=== PATIENT | female | born 1940 | race Caucasian/White ===

== ENCOUNTER 2022-09-16 08:28 | Day surgery (SDC) | payer OTHER, SELFPAY ==
[2022-09-11 11:38] VITALS: BMI 26.6
--- NOTE | 2022-09-12 13:23 | MHC.SHP ---
Pre-Procedural Eval Section A Date of Service: 09/12/22 The patient is an INPATIENT: No Changes since office visit: No Cold of Flu in the past 2 weeks, No New Medical Problems, No Changes in Medication and No Patient answered all questions The History & Physical has been completed within 30 days and I have reviewed it.: Yes Section B Chief Complaint: Age-related nuclear cataract, right eye Allergies: Allergies Allergy/AdvReac Type Severity Reaction Status Date / Time Sulfa (Sulfonamide Allergy Hives Verified 09/11/22 11:28 Antibiotics) sulfamethoxazole Allergy Hives Verified 09/11/22 11:29 [From Bactrim] trimethoprim [From Bactrim] Allergy Hives Verified 09/11/22 11:29 Plan Diagnosis/Plan: Unchanged I have reviewed the history and physical and performed a pertinent physical examination on my patient. No changes have occurred unless specified. Time Spent With Patient Time: Total time managing care of this patient today ____ minutes.
--- NOTE | 2022-09-13 10:06 | P.CONAN_ITS ---
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 If so, by whom?: No Advance Directives: No Advance Directives Information Provided: Yes Advance Directives on File: No Recently lost weight without trying: No Eating poorly because of decreased appetite: No Nutrition Risks: No Nutritional Risk Patient : No : No Poor oral hygiene: Yes (partial bottom) Meds Allergies Allergy/AdvReac Type Severity Reaction Status Date / Time Sulfa (Sulfonamide Allergy Hives Verified 09/16/22 08:34 Antibiotics) sulfamethoxazole Allergy Hives Verified 09/16/22 08:34 [From Bactrim] trimethoprim [From Bactrim] Allergy Hives Verified 09/16/22 08:34 Home Medications Medication Instructions Recorded Confirmed Last Taken Type aspirin 81 mg tablet,delayed 81 mg PO DAILY 09/11/22 09/11/22 Unknown History release atorvastatin 20 mg tablet 20 mg PO DAILY 09/11/22 09/11/22 Unknown History diltiazem HCl 180 mg capsule,24 180 mg PO DAILY 09/11/22 09/11/22 Unknown History hr,extended release levothyroxine 75 mcg tablet 75 mcg PO DAILY 09/11/22 09/11/22 Unknown History multivitamin 1 tab PO DAILY 09/11/22 09/11/22 Unknown History pantoprazole 20 mg tablet,delayed 20 mg PO DAILY 09/11/22 09/11/22 Unknown History release sulindac 150 mg tablet 150 mg PO BID 09/11/22 09/11/22 Unknown History Exam Exam Date and Time: September 13, 2022 1006 Height,Weight and Vital Signs: Height 5 ft 7 in Weight 77.111 kg Assessment and Plan Assessment Anesthesia Assessment: Chart Reviewed Documented by User: Alcides Soliz MD 09/16/22 18:09 [facility] Past Medical History Medical History Asthma Bronchitis GERD (gastroesophageal reflux disease) Hepatitis A Hiatal hernia Thyroid disease Ventricular arrhythmia Functional capacity: independent ambulation Family History Family history of problems with anesthesia: No Surgical History Surgical History History of prolapse of bladder Hx of appendectomy Hx of tubal ligation History of Problems with Anesthesia: No Social History Social History 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 If so, by whom?: No Advance Directives: No Advance Directives Information Provided: Yes Advance Directives on File: No Recently lost weight without trying: No Eating poorly because of decreased appetite: No Nutrition Risks: No Nutritional Risk Patient : No : No Poor oral hygiene: Yes (partial bottom) Meds Allergies Allergy/AdvReac Type Severity Reaction Status Date / Time Sulfa (Sulfonamide Allergy Hives Verified 09/16/22 08:34 Antibiotics) sulfamethoxazole Allergy Hives Verified 09/16/22 08:34 [From Bactrim] trimethoprim [From Bactrim] Allergy Hives Verified 09/16/22 08:34 Home Medications Medication Instructions Recorded Confirmed Last Taken Type aspirin 81 mg tablet,delayed 81 mg PO DAILY 09/11/22 09/11/22 Unknown History release atorvastatin 20 mg tablet 20 mg PO DAILY 09/11/22 09/11/22 Unknown History diltiazem HCl 180 mg capsule,24 180 mg PO DAILY 09/11/22 09/11/22 Unknown History hr,extended release levothyroxine 75 mcg tablet 75 mcg PO DAILY 09/11/22 09/11/22 Unknown History multivitamin 1 tab PO DAILY 09/11/22 09/11/22 Unknown History pantoprazole 20 mg tablet,delayed 20 mg PO DAILY 09/11/22 09/11/22 Unknown History release sulindac 150 mg tablet 150 mg PO BID 09/11/22 09/11/22 Unknown History Exam Airway Mallampati Class: III Neck ROM: Full Loose/Missing/Broken Teeth: Yes Assessment and Plan Assessment Anesthesia Assessment: Anesthesia Plan Discussed Final Anesthetic Review Family History of Problems with Anesthesia: No History of Problems with Anesthesia: No NPO: Yes ASA Class: II Final Preanesthetic Review: Meds/Allgs Chart Reviewed, Consent Obtained/Reviewed and Anes Risks/Benef Reviewed Patient Risk: Intermediate Procedure Risk: Intermediate Anesthetic Plan Anesthetic Plan: MAC: and Agree w/ Assess. and Plan Disposition: Standard PACU
[2022-09-16 08:49] VITALS: BP 148/72; PULSE 73; RESP 16; TEMP 36.7; O2SAT 97
[2022-09-16] MEDS: Tetracaine HCl/PF 0.5% Oph Sol 4 ML DROPS 1 DROP EYE-RIGHT (08:58)
[2022-09-16] MEDS: Cyclopentolate 1 % Ophth Sol 2 ML DRPBTL 1 DROP EYE-RIGHT ×3 (09:01→09:17)
[2022-09-16] MEDS: Ketorolac Tromethamine 0.5% Op 5 ML DROPS 1 DROP EYE-RIGHT ×3 (09:07→09:19)
[2022-09-16] MEDS: Phenylephrine HCL 2.5% Oph SoL 2 ML BOTTLE 1 DROP EYE-RIGHT ×3 (09:10→09:20)
[2022-09-16] MEDS: Lactated Ringers 500 ML 50 ML IV (09:12)
--- NOTE | 2022-09-16 10:13 | HO.PNOPHT ---
Ophthalmology Procedure Procedure Date of Service: 09/16/22 Ophthalmology Viscoelastic: Healon Duet Dual Pack Pro Ophthalmology Lenses: TECNIS [id number] (18.5) Procedure Notes: PREOPERATIVE DIAGNOSIS: Decreased visual acuity right eye secondary to cataract POSTOPERATIVE DIAGNOSIS: Same PROCEDURE: Right cataract extraction with intraocular lens insertion SURGEON: Oren Cary M.D. ANESTHESIA: Topical/MAC ESTIMATED BLOOD LOSS: None COMPLICATIONS: None After obtaining informed consent, the patient was brought to the operating room suite and placed in the supine position. After adequate sedation per anesthesia, topical drops of Tetracaine were given to the right eye. The eye was then prepped and draped in the usual sterile fashion. The operating room microscope was then positioned over the operative eye and a lid speculum placed. A paracentesis was created. Viscoelastic was then instilled into the anterior chamber. A three plane incision was then created temporally, utilizing a 2.85 mm keratome. Capsulotomy forceps were then utilized to create a circular tear capsulotomy. Hydrodissection and hydrodelineation were carried out until adequate mobilization of the nucleus occurred. Phacoemulsification was then utilized to remove the dense central nucleus followed by removal of the cortical material utilizing the automated aspiration irrigation unit. Viscoelastic was instilled into the posterior capsular bag followed by placement of a posterior chamber intraocular lens without difficulty. The residual Viscoelastic was then removed utilizing the automated IA machine. The wound was checked and found to be watertight. The patient tolerated the procedure well and the lid speculum was removed. Intracameral injection of Vigamox 0.1 mL followed by a subtenon injection of Kenalog-40 0.2 mL were administered. The patient will be seen in the a.m.
[2022-09-16 10:38] VITALS: BP 142/66; PULSE 65; RESP 16; TEMP 36.3; O2SAT 96
== END 2022-09-16 10:46 | disposition home or self-care (01) ==
PROVIDERS: PCP Internal Medicine; Visit Provider Ophthalmology
PROC: (CPT 66985; principal; 2022-09-16 10:40)
DX: H25.11 Age-related nuclear cataract, right eye (principal); H54.7 Unspecified visual loss; E07.9 Disorder of thyroid, unspecified; E78.00 Pure hypercholesterolemia, unspecified; I49.1 Atrial premature depolarization; J45.909 Unspecified asthma, uncomplicated; K21.9 Gastro-esophageal reflux disease without esophagitis; Z79.82 Long term (current) use of aspirin; Z79.899 Other long term (current) drug therapy; Z88.2 Allergy status to sulfonamides; Z87.891 Personal history of nicotine dependence; Z98.890 Other specified postprocedural states
CPT/HCPCS: 66984; J2250; J3010; J3301; V2632

== ENCOUNTER 2022-09-30 08:50 | Day surgery (SDC) | payer OTHER, SELFPAY ==
[2022-09-11 11:41] VITALS: BMI 26.6
--- NOTE | 2022-09-27 08:15 | MHC.SHP ---
Pre-Procedural Eval Section A Date of Service: 09/27/22 The patient is an INPATIENT: No Changes since office visit: No Cold of Flu in the past 2 weeks, No New Medical Problems, No Changes in Medication and No Patient answered all questions The History & Physical has been completed within 30 days and I have reviewed it.: Yes Section B Chief Complaint: Age-related nuclear cataract, left eye Allergies: Allergies Allergy/AdvReac Type Severity Reaction Status Date / Time Sulfa (Sulfonamide Allergy Hives Verified 09/16/22 08:34 Antibiotics) sulfamethoxazole Allergy Hives Verified 09/16/22 08:34 [From Bactrim] trimethoprim [From Bactrim] Allergy Hives Verified 09/16/22 08:34 Plan Diagnosis/Plan: Unchanged I have reviewed the history and physical and performed a pertinent physical examination on my patient. No changes have occurred unless specified. Time Spent With Patient Time: Total time managing care of this patient today ____ minutes.
--- NOTE | 2022-09-27 09:49 | HO.ANESPROP2 ---
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 If so, by whom?: No Advance Directives: No Advance Directives Information Provided: Yes Advance Directives on File: No Recently lost weight without trying: No Nutrition Risks: No Nutritional Risk Patient : No : No Poor oral hygiene: Yes (partial bottom) Meds Allergies Allergy/AdvReac Type Severity Reaction Status Date / Time Sulfa (Sulfonamide Allergy Hives Verified 09/30/22 09:44 Antibiotics) sulfamethoxazole Allergy Hives Verified 09/30/22 09:44 [From Bactrim] trimethoprim [From Bactrim] Allergy Hives Verified 09/30/22 09:44 Home Medications Medication Instructions Recorded Confirmed Last Taken Type aspirin 81 mg tablet,delayed 81 mg PO DAILY 09/11/22 09/11/22 Unknown History release atorvastatin 20 mg tablet 20 mg PO DAILY 09/11/22 09/11/22 Unknown History diltiazem HCl 180 mg capsule,24 180 mg PO DAILY 09/11/22 09/11/22 09/30/22 06:45 History hr,extended release levothyroxine 75 mcg tablet 75 mcg PO DAILY 09/11/22 09/11/22 09/30/22 06:45 History multivitamin 1 tab PO DAILY 09/11/22 09/11/22 Unknown History pantoprazole 20 mg tablet,delayed 20 mg PO DAILY 09/11/22 09/11/22 09/30/22 06:45 History release sulindac 150 mg tablet 150 mg PO BID 09/11/22 09/11/22 09/28/22 History cranberry PO DAILY 09/30/22 09/30/22 06:45 History Exam Exam Date and Time: September 27, 2022 0949 Height,Weight and Vital Signs: Height 5 ft 7 in Weight 77.111 kg Assessment and Plan Assessment Anesthesia Assessment: Chart Reviewed Final Anesthetic Review Family History of Problems with Anesthesia: No History of Problems with Anesthesia: No Documented by User: Tyesha Rosales MD 09/30/22 12:26 [facility] Past Medical History Medical History Asthma Bronchitis GERD (gastroesophageal reflux disease) Hepatitis A Hiatal hernia Thyroid disease Ventricular arrhythmia Surgical History Surgical History History of prolapse of bladder Hx of appendectomy Hx of tubal ligation Social History Social History 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 If so, by whom?: No Advance Directives: No Advance Directives Information Provided: Yes Advance Directives on File: No Recently lost weight without trying: No Nutrition Risks: No Nutritional Risk Patient : No : No Poor oral hygiene: Yes (partial bottom) Meds Allergies Allergy/AdvReac Type Severity Reaction Status Date / Time Sulfa (Sulfonamide Allergy Hives Verified 09/30/22 09:44 Antibiotics) sulfamethoxazole Allergy Hives Verified 09/30/22 09:44 [From Bactrim] trimethoprim [From Bactrim] Allergy Hives Verified 09/30/22 09:44 Home Medications Medication Instructions Recorded Confirmed Last Taken Type aspirin 81 mg tablet,delayed 81 mg PO DAILY 09/11/22 09/11/22 Unknown History release atorvastatin 20 mg tablet 20 mg PO DAILY 09/11/22 09/11/22 Unknown History diltiazem HCl 180 mg capsule,24 180 mg PO DAILY 09/11/22 09/11/22 09/30/22 06:45 History hr,extended release levothyroxine 75 mcg tablet 75 mcg PO DAILY 09/11/22 09/11/22 09/30/22 06:45 History multivitamin 1 tab PO DAILY 09/11/22 09/11/22 Unknown History pantoprazole 20 mg tablet,delayed 20 mg PO DAILY 09/11/22 09/11/22 09/30/22 06:45 History release sulindac 150 mg tablet 150 mg PO BID 09/11/22 09/11/22 09/28/22 History cranberry PO DAILY 09/30/22 09/30/22 06:45 History Exam Airway Mallampati Class: II TM Dist: >3cm Neck ROM: Full Loose/Missing/Broken Teeth: No Heart: RRR Lungs: CTA Assessment and Plan Final Anesthetic Review NPO: Yes Final Preanesthetic Review: Consent Obtained/Reviewed and Anes Risks/Benef Reviewed Patient Risk: Low Procedure Risk: Low Anesthetic Plan Anesthetic Plan: MAC: Disposition: Standard PACU
[2022-09-30] MEDS: Tetracaine HCl/PF 0.5% Oph Sol 4 ML DROPS 1 DROP EYE-LEFT (11:30)
[2022-09-30] MEDS: Cyclopentolate 1 % Ophth Sol 2 ML DRPBTL 1 DROP EYE-LEFT ×3 (11:33→11:47)
[2022-09-30 11:35] VITALS: BP 166/81; PULSE 71; RESP 16; TEMP 36.4; O2SAT 98
[2022-09-30] MEDS: Tropicamide 1 % Ophth Sol 3 ML BTL 1 DROP EYE-LEFT ×3 (11:35→11:48)
[2022-09-30] MEDS: Ketorolac Tromethamine 0.5% Op 5 ML DROPS 1 DROP EYE-LEFT ×3 (11:36→11:50)
[2022-09-30] MEDS: Phenylephrine HCL 2.5% Oph SoL 2 ML BOTTLE 1 DROP EYE-LEFT ×3 (11:38→11:52)
[2022-09-30] MEDS: Lactated Ringers 500 ML 50 ML IV (11:47)
--- NOTE | 2022-09-30 12:21 | HO.PNOPHT ---
Ophthalmology Procedure Procedure Date of Service: 09/30/22 Ophthalmology Viscoelastic: Healmaricruz Duet Dual Pack Pro Ophthalmology Lenses: TECEDGARD [id number] (19) Procedure Notes: PREOPERATIVE DIAGNOSIS: Decreased visual acuity left eye secondary to cataract POSTOPERATIVE DIAGNOSIS: Same PROCEDURE: Left cataract extraction with intraocular lens insertion SURGEON: Oren Cary M.D. ANESTHESIA: Topical/MAC ESTIMATED BLOOD LOSS: None COMPLICATIONS: None After obtaining informed consent, the patient was brought to the operation room suite and placed in the supine position. After adequate sedation per anesthesia, topical drops of Tetracaine were given to the left eye. The eye was then prepped and draped in the usual sterile fashion. The operating room microscope was then positioned over the operative eye and a lid speculum placed. A paracentesis was created. Viscoelastic was then instilled into the anterior chamber. A three plane incision was then created temporally, utilizing a 2.85 mm keratome. Capsulotomy forceps were then utilized to create a circular tear capsulotomy. Hydrodissection and hydrodelineation were carried out until adequate mobilization of the nucleus occurred. Phacoemulsification was then utilized to remove the dense central nucleus followed by removal of the cortical material utilizing the automated aspiration irrigation unit. Viscoat elastic was instilled into the posterior capsular bag followed by placement of a posterior chamber intraocular lens without difficulty. The residual Viscoat elastic was then removed utilizing the automated IA machine. The wound was check and found to be watertight. The patient tolerated the procedure well and the lid speculum was removed. Intracameral injection of Vigamox 0.1 mL followed by a subtenon injection of Kenalog-40 0.2 mL were administered. The patient will be seen in the a.m.
[2022-09-30 12:40] VITALS: BP 155/65; PULSE 64; RESP 13; TEMP 36.6; O2SAT 99
[2022-09-30] MEDS: Acetaminophen 325 MG TABLET 650 MG PO (12:58)
== END 2022-09-30 13:03 | disposition home or self-care (01) ==
PROVIDERS: PCP Internal Medicine; Visit Provider Ophthalmology
PROC: (CPT 66985; principal; 2022-09-30 12:20)
DX: H25.12 Age-related nuclear cataract, left eye (principal); H54.7 Unspecified visual loss; I49.1 Atrial premature depolarization; E78.00 Pure hypercholesterolemia, unspecified; J45.909 Unspecified asthma, uncomplicated; E07.9 Disorder of thyroid, unspecified; B15.9 Hepatitis A without hepatic coma; Z79.82 Long term (current) use of aspirin; Z79.899 Other long term (current) drug therapy; Z88.2 Allergy status to sulfonamides; Z87.891 Personal history of nicotine dependence
CPT/HCPCS: 66984; J2250; J3010; J3301; V2632